=== PATIENT | male | born 1955 | race Caucasian/White ===

== ENCOUNTER 2018-01-28 10:22 | Observation (INO) | payer MEDICAID ==
[2018-01-28 10:30] VITALS: BMI 27.1
[2018-01-28] MEDS ORDERED: Aspirin 325 mg EC Tablets PO STA (10:39)
[2018-01-28] MEDS ORDERED: Sodium Chloride 0.9% 1,000 ML IV STA (10:41)
[2018-01-28 10:52] LABS: VENOUS BLOOD GAS PO2 38 mm/Hg (30-55); VENOUS BLOOD PH 7.33 (7.32-7.43)
--- NOTE | 2018-01-28 10:56 | ED PDOC ---
Arrival/HPI - General Chief Complaint: Chest Pain Time Seen by Provider: 01/28/18 10:39 Historian: Patient - History of Present Illness Narrative History of Present Illness (Text): 01/28/18 10:50 62 year old male, with past medical history of COPD/asthma and non-insulin dependent diabetes, presents to the Emergency department complaining of episodic chest pain accompanied with shortness of breath and dizziness since yesterday. Patient informs feeling vertiginously dizzy last night which worsened after taking a shower. Patient informs taking his medications and going to bed after uneventfully. However, symptoms persisted in the morning with worsening dizziness, chest pain described as pressure-like radiating downwards to epigastric region, nausea and diaphoresis. Patient called EMS immediately and presented to the ER for medical evaluation. Patient denies any fever, chills, vomiting, diarrhea, abdominal pain, infective foci or any other complaints. Time/Duration: Prior to Arrival, Other (last night) Symptom Onset: Gradual Symptom Course: Worsening Quality: Pressure Activities at Onset: Light Context: Home Past Medical History - Provider Review Nursing Documentation Reviewed: Yes - Pulmonary Hx Bronchitis: Yes Hx Chronic Obstructive Pulmonary Disease (COPD): Yes - Endocrine/Metabolic Hx Diabetes Mellitus Type 2: Yes - Psychiatric Hx Depression: No Hx Substance Use: No - Anesthesia Hx Anesthesia: No - Suicidal Assessment Feels Threatened In Home Enviroment: No Family/Social History - Physician Review Nursing Documentation Reviewed: Yes Family/Social History: No Known Family HX Smoking Status: Light Smoker < 10 Cigarettes Daily Hx Alcohol Use: Yes Hx Substance Use: No Hx Substance Use Treatment: No Allergies/Home Meds Allergies/Adverse Reactions: Allergies No Known Allergies Allergy (Verified 06/13/17 21:55) Home Medications: Home Meds Medication Instructions Recorded Confirmed metFORMIN [glucOPHAGE] 500 mg PO DAILY 06/13/17 01/28/18 Albuterol HFA [Ventolin HFA 90 2 puff IH Q6H PRN 01/28/18 01/28/18 mcg/actuation (8 g)] Aspirin [Adult Aspirin] 81 mg PO DAILY 01/28/18 01/28/18 Enalapril Maleate [Vasotec] 2.5 mg PO DAILY 01/28/18 01/28/18 Fluticasone/Salmeterol 500/50 1 puff IH BID 01/28/18 01/28/18 [Advair Diskus 500/50] Tiotropium [Spiriva] 1 cap IH DAILY 01/28/18 01/28/18 Review of Systems - Physician Review All systems were reviewed & negative as marked: Yes - Review of Systems Constitutional: Normal. absent: Fevers Eyes: Normal ENT: Normal Respiratory: SOB Cardiovascular: Chest Pain Gastrointestinal: Nausea. absent: Abdominal Pain, Diarrhea, Vomiting Genitourinary Male: Normal Musculoskeletal: Normal Skin: Normal Neurological: Dizziness Endocrine: Diaphoresis Hemo/Lymphatic: Normal Psychiatric: Normal Physical Exam Vital Signs Reviewed: Yes Vital Signs Temp Pulse Resp BP Pulse Ox 01/28/18 14:11 75 18 118/61 99 01/28/18 14:00 77 18 121/71 01/28/18 12:57 77 18 121/71 96 01/28/18 10:59 75 20 129/79 95 01/28/18 10:38 97.5 F L 91 H 19 130/99 H 96 Temperature: Afebrile Blood Pressure: Hypertensive Pulse: Regular Respiratory Rate: Normal Appearance: Positive for: Uncomfortable (clutching emesis bucket; diaphoretic) Pain Distress: Mild Mental Status: Positive for: Alert and Oriented X 3 - Systems Exam Head: Present: Atraumatic, Normocephalic Pupils: Present: PERRL Extroacular Muscles: Present: EOMI Conjunctiva: Present: Normal Respiratory/Chest: Present: Clear to Auscultation. No: Good Air Exchange ( Decreased I/E ratio), Respiratory Distress, Accessory Muscle Use, Wheezes Cardiovascular: Present: Regular Rate and Rhythm, Normal S1, S2, Other ( complaining of intermittent chest pain). No: Murmurs Abdomen: No: Tenderness, Distention, Peritoneal Signs Upper Extremity: Present: Normal Inspection. No: Cyanosis, Edema Lower Extremity: Present: Normal Inspection. No: Edema Neurological: Present: GCS=15, CN II-XII Intact, Speech Normal Skin: Present: Warm, Dry, Normal Color. No: Rashes Psychiatric: Present: Alert, Oriented x 3, Normal Insight, Normal Concentration Medical Decision Making ED Course and Treatment: 01/28/18 11:02 Impression: 62 year old male presents to the Emergency department for chest pain , shortness of breath and dizziness. Plan: -- VBG -- CT of Head -- EKG -- Labs -- Chest X-ray -- Meclizine -- Aspirin -- IV Fluids -- Zofran -- Urine Culture -- Urinalysis -- Reassess and disposition Prior Visits: Notes and results from previous visits were reviewed. On 06/13/17 patient presented to the Emergency department for chest pain and was discharged home after treatment for asthmatic bronchitis. Progress Notes: 01/28/18 11:00 EKG: Ordered, reviewed, and independently interpreted the EKG. Rate : 81 BPM Rhythm : NSR Interpretation : Qtc 462ms. No arrhythmogenic interval. No ST-segment elevations or depressions, no T-wave inversions, normal intervals. 01/28/18 12:21 CT of head reviewed by radiologist, shows: FINDINGS: HEMORRHAGE: No intracranial hemorrhage. BRAIN: No mass effect or edema. No atrophy or chronic microvascular ischemic changes. VENTRICLES: Unremarkable. No hydrocephalus. CALVARIUM: Unremarkable. PARANASAL SINUSES: Unremarkable as visualized. No significant inflammatory changes. MASTOID AIR CELLS: Unremarkable as visualized. No inflammatory changes. OTHER FINDINGS: None. IMPRESSION: No acute intracranial abnormalities. No significant findings to account for the clinical presentation. No significant interval change compared to the prior examination(s). - Lab Interpretations Lab Results: 01/28/18 10:35 01/28/18 10:35 Lab Results 01/28/18 12:10: pO2 69 H, VBG pH 7.41, VBG pCO2 39.0 L, VBG HCO3 24.7, VBG Total CO2 25.9, VBG O2 Sat (Calc) 96.1 H, VBG Base Excess 0.1, VBG Potassium 3.8 , Sodium 134.0, Chloride 103.0, Glucose 111 H, Lactate 1.8, FiO2 21.0, Venous Blood Potassium 3.8 01/28/18 11:25: Urine Color Yellow, Urine Appearance Clear, Urine pH 6.0, Ur Specific [place] 1.025, Urine Protein Trace H, Urine Glucose (UA) Negative, Urine Ketones Negative, Urine Blood Negative, Urine Nitrate Negative, Urine Bilirubin Negative, Urine Urobilinogen 0.2, Ur Leukocyte Esterase Negative, Urine RBC 0 - 2, Urine WBC 0 - 2, Ur Epithelial Cells None, Urine Bacteria Few 01/28/18 10:47: POC Glucose (mg/dL) 96 01/28/18 10:35: Sodium 143, Chloride 102, Potassium 4.3, Carbon Dioxide 27, Anion Gap 19, BUN 13, Creatinine 0.8, Est GFR ( Amer) > 60, Est GFR (Non- Af Amer) > 60, Random Glucose 99, Calcium 9.5, Magnesium 2.2, Total Bilirubin 0.4, AST 33, ALT 29, Alkaline Phosphatase 39, Lactate Dehydrogenase 411, Total Creatine Kinase 120, Troponin I < 0.01, NT-Pro-B Natriuret Pep 58.2, Total Protein 7.8, Albumin 4.6, Globulin 3.3, Albumin/Globulin Ratio 1.4 01/28/18 10:35: pO2 38, VBG pH 7.33, VBG pCO2 53.0, VBG HCO3 27.9, VBG Total CO2 29.5 H, VBG O2 Sat (Calc) 76.4 H, VBG Base Excess 1.0, VBG Potassium 4.2, Sodium 136.0, Chloride 101.0, Glucose 101, Lactate 2.8 H, FiO2 21.0, Venous Blood Potassium 4.2 01/28/18 10:35: PT 11.7, INR 1.02, APTT 31.0 01/28/18 10:35: WBC 9.0, RBC 6.28 H, Hgb 17.3, Hct 50.3, MCV 80.1, MCH 27.5, MCHC 34.4, RDW 15.2 H, Plt Count 266, MPV 9.7, Gran % 52.2, Lymph % (Auto) 38.7 H, [place] % (Auto) 8.1 H, Eos % (Auto) 0.8 L, Baso % (Auto) 0.2, Gran # 4.67, Lymph # (Auto) 3.5 H, [place] # (Auto) 0.7 H, Eos # (Auto) 0.1, Baso # (Auto) 0.02 - RAD Interpretation Radiology Orders: 01/28/18 10:40 CHEST PORTABLE [RAD] Stat 01/28/18 10:42 HEAD W/O CONTRAST [CT] Stat Lamp Developer: Radiologist - EKG Interpretation Interpreted by ED Physician: Yes Type: 12 lead EKG - Medication Orders Current Medication Orders: Acetaminophen (Tylenol 325mg Tab) 650 mg PO Q6H PRN PRN Reason: Fever >100.4 F Albuterol/Ipratropium (Duoneb 3 Mg/0.5 Mg (3 Ml) Ud) 3 ml IH [id number] PRN PRN Reason: Shortness of Breath Arformoterol Tartrate (Brovana) 15 mcg IH [id number] RONNIE Aspirin (Ecotrin) 81 mg PO DAILY RONN[facility] Budesonide (Pulmicort Respules) 1 mg IH [id number] RONNIE Heparin Sodium (Porcine) (Heparin) 5,000 units SC Q8 [facility] PRN Reason: Protocol Insulin Human Lispro (Humalog Low) 0 units SC ACHS [facility]ONNIE PRN Reason: Protocol Lisinopril (Zestril) 2.5 mg PO DAILY RONNIE Ondansetron HCl (Zofran Inj) 4 mg IVP Q6H PRN PRN Reason: Nausea/Vomiting Pantoprazole Sodium (Protonix Ec Tab) 40 mg PO 0600 RONNIE Tiotropium [place] (Spiriva) 1,000 mcg IH DAILY RONNIE Discontinued Medications Aspirin (Ecotrin) 325 mg PO STAT STA Stop: 01/28/18 10:40 Last Admin: 01/28/18 10:49 Dose: 325 mg Sodium Chloride (Sodium Chloride 0.9%) 1,000 mls @ 999 mls/hr IV .Q1H1M STA Stop: 01/28/18 11:41 Last Admin: 01/28/18 10:49 Dose: 999 mls/hr eMAR Start Stop Document 01/28/18 10:49 GMD (Rec: 01/28/18 10:49 GMD [id number]) Intravenous Solution Start Date 01/28/18 Start Time 10:49 End Date 01/28/18 End time 11:50 Total Infusion Time 61 Meclizine HCl (Antivert) 50 mg PO STAT STA Stop: 01/28/18 10:42 Last Admin: 01/28/18 10:49 Dose: 50 mg Ondansetron HCl (Zofran Inj) 4 mg IVP STAT STA Stop: 01/28/18 10:42 Last Admin: 01/28/18 10:49 Dose: 4 mg IVP Administration Document 01/28/18 10:49 GMD (Rec: 01/28/18 10:49 GMD [id number]) Charges for Administration # of IVP Administrations 1 Fluticasone/Salmeterol (Advair Diskus 500/50) 1 puff IH BID RONNIE - Scribe Statement The provider has reviewed the documentation as recorded by the Scribe Shayy Whiteside. All medical record entries made by the Scribe were at my direction and personally dictated by me. I have reviewed the chart and agree that the record accurately reflects my personal performance of the history, physical exam, medical decision making, and the department course for this patient. I have also personally directed, reviewed, and agree with the discharge instructions and disposition. Disposition/Present on Arrival - Present on Arrival Any Indicators Present on Arrival: No History of DVT/PE: No History of Uncontrolled Diabetes: Yes Urinary Catheter: No History of Decub. Ulcer: No History Surgical Site Infection Following: None - Disposition Have Diagnosis and Disposition been Completed?: Yes Diagnosis: Chest pain, Vertigo Disposition: HOSPITALIZED Disposition Time: 11:45 Patient Plan: Admission, Telemetry Condition: FAIR
[2018-01-28 11:01] LABS: ALB/GLOB RATIO 1.4 (1.1-1.8); ALBUMIN 4.6 g/dL (3.0-4.8); ALT/SGPT 29 U/L (7-56); AST/SGOT 33 U/L (17-59); BLOOD UREA NITROGEN 13 mg/dL (7-21); CALCIUM 9.5 mg/dL (8.4-10.5); GFR AFRICAN-AMERICAN > 60; GFR NON-AFRICAN AMERICAN > 60
[2018-01-28 11:08] LABS: BASO # 0.02 K/mm3 (0.0-2.0); BASO % 0.2 % (0.0-3.0); EOS # 0.1 (0.0-0.7); EOS % 0.8 % (1.5-5.0); GRAN # 4.67 (1.4-6.5); GRAN % 52.2 % (50.0-68.0); HEMOGLOBIN 17.3 g/dL (14.0-18.0); LYMPH # 3.5 (1.2-3.4); LYMPH % 38.7 % (22.0-35.0); MEAN CELL VOLUME 80.1 fl (80.0-105.0); MEAN CORPUSCULAR HEMOGLOBIN 27.5 pg (25.0-35.0); MEAN CORPUSCULAR HGB CONC 34.4 g/dl (31.0-37.0); MEAN PLATELET VOLUME 9.7 fl (7.0-11.0); MONO # 0.7 (0.1-0.6); MONO % 8.1 % (1.0-6.0); RBC 6.28 10^6/uL (3.5-6.1); RED CELL DISTRIBUTION WIDTH 15.2 % (11.5-14.5)
[2018-01-28 11:13] LABS: B-TYPE NATRIURETIC PEPTIDE 58.2 pg/mL (0-450); TROPONIN I < 0.01 ng/mL
[2018-01-28 11:24] LABS: INR 1.02 (0.93-1.08); PROTHROMBIN TIME 11.7 SECONDS (9.4-12.5)
--- NOTE | 2018-01-28 11:37 | CT ---
PROCEDURE: CT HEAD WITHOUT CONTRAST. HISTORY: dizziness r/o central cause of vertigo COMPARISON: 07/09/2012 TECHNIQUE: Axial computed tomography images were obtained through the head/brain without intravenous contrast. Coronal and sagittal reconstructed images. Ostial worked out but I CT tastes correct Radiation dose: Total exam DLP = 855.29 mGy-cm. This CT exam was performed using one or more of the following dose reduction techniques: Automated exposure control, adjustment of the mA and/or kV according to patient size, and/or use of iterative reconstruction technique. FINDINGS: HEMORRHAGE: No intracranial hemorrhage. BRAIN: No mass effect or edema. No atrophy or chronic microvascular ischemic changes. VENTRICLES: Unremarkable. No hydrocephalus. CALVARIUM: Unremarkable. PARANASAL SINUSES: Unremarkable as visualized. No significant inflammatory changes. MASTOID AIR CELLS: Unremarkable as visualized. No inflammatory changes. OTHER FINDINGS: None. IMPRESSION: No acute intracranial abnormalities. No significant findings to account for the clinical presentation. No significant interval change compared to the prior examination(s).
[2018-01-28 11:42] LABS: URINE BILIRUBIN NEGATIVE (NEGATIVE); URINE BLOOD NEGATIVE (NEGATIVE); URINE GLUCOSE (UA) NEGATIVE (NEGATIVE); URINE LEUKOCYTE ESTERASE NEGATIVE Leu/uL (NEGATIVE); URINE PROTEIN TRACE mg/dL (<30 mg/dL); URINE UROBILINOGEN 0.2 E.U./dL (<1 E.U./dL)
[2018-01-28 11:48] LABS: URINE APPEARANCE CLEAR (CLEAR); URINE COLOR YELLOW (YELLOW)
[2018-01-28 12:12] LABS: URINE BACTERIA FEW (NEG); URINE RBC 0 - 2 /hpf (0-2); URINE WBC 0 - 2 /hpf (0-6)
--- NOTE | 2018-01-28 12:35 | RAD ---
HISTORY: routine med exam COMPARISON: 06/29/2012. FINDINGS: LUNGS: No active pulmonary disease. PLEURA: No significant pleural effusion identified, no pneumothorax apparent. CARDIOVASCULAR: No radiographic findings to suggest acute or significant cardiovascular disease. OSSEOUS STRUCTURES: No significant abnormalities. VISUALIZED UPPER ABDOMEN: Normal. OTHER FINDINGS: None. IMPRESSION: No active disease. No significant interval change compared to the prior examination(s).
--- NOTE | 2018-01-28 13:03 | CARD ---
APPROVED REPORT EKG Measurement Heart [id number] <Conclusion> Normal sinus rhythm Possible Left atrial enlargement Left axis deviation Abnormal ECG
[2018-01-28 14:18] LABS: VENOUS BLOOD GAS BASE EXCESS 0.1 mmol/L (0.0-2.0); VENOUS BLOOD GAS PO2 69 mm/Hg (30-55); VENOUS BLOOD PH 7.41 (7.32-7.43)
--- NOTE | 2018-01-28 15:06 | CP.PCM.HP ---
<Shilpa Reina - Last Filed: 01/28/18 15:31> History of Present Illness - History of Present Illness History of Present Illness: PGY-[address] George CC: Dizziness with chest discomfort Mr. Juanito Rocha, 62M, former smoker (quit 1 year ago), with PMHx of non-IDDM, COPD, c/o chest pain with dizziness x 1 day. Last night, pt felt dizziness with room spinning sensation as he changed his postition and turn in his bed. It was associated with diaphoresis, generalized weakness, and chest discomfort. He felt dizzy throughout the day, worsen when he took a shower. The dizziness is room spinning, comes and goes, but associated with N/V, diaphoresis, generalized weakness and chest discomfort. He had chest pressure that felt "funny". No radiation to arm, jaw, back. Patient called EMS immediately and presented to the ER for medical evaluation. He vomited once in the ED, non- bloody, non billous. He never had heart doctor or stress test/echocardiogram. He had colonoscopy 5 years ago, endorsed to be normal. He forgot name of GI doctor. He had severe vertigo 5 years ago. Controlled by med and off the med since but forgot the name of the med. EKG: NSR 81. Qtc 462ms. No arrhythmogenic interval. No ST-segment elevations or depressions, no T-wave inversions, normal intervals. CT head: no acute intracranial abnormality Pt took ASA 325, meclizine and zofran in ED ROS - Denies any fever, chills, MARTINEZ, SOB, diarrhea, abdominal pain, recent infection. No strenuous activity. Last exercise last monday. No new food/ stale food. PMH DM, non-iddm COPD, hospitalized 2017, never intubated Former smoker, quit 2017. used to smoke 1/2ppd x 30 years PSH None FH Father of [place] at age 89 SH Live with Denies etoh Denies drug All NKDA Med: Metformin 500 daily spiriva, Advair (ICS+Laba) Enalapril PMD: Dr. Perez Wassef Present on Admission - Present on Admission Any Indicators Present on Admission: No Past Patient History - Past Social History Smoking Status: Former Smoker - PULMONARY Hx Bronchitis: Yes Hx Chronic Obstructive Pulmonary Disease (COPD): Yes - ENDOCRINE/METABOLIC Hx Diabetes Mellitus Type 2: Yes - MUSCULOSKELETAL/RHEUMATOLOGICAL Hx Falls: No - PSYCHIATRIC Hx Depression: No Hx Substance Use: No - SURGICAL HISTORY Hx Surgeries: No - ANESTHESIA Hx Anesthesia: No Meds Allergies/Adverse Reactions: Allergies Allergy/AdvReac Type Severity Reaction Status Date / Time No Known Allergies Allergy Verified 06/13/17 21:55 Physical Exam - Constitutional Appears: No Acute Distress - Head Exam Head Exam: ATRAUMATIC, NORMAL INSPECTION, NORMOCEPHALIC - Eye Exam Eye Exam: EOMI, Normal appearance, PERRL. absent: Scleral icterus Pupil Exam: NORMAL ACCOMODATION, PERRL - ENT Exam ENT Exam: Mucous Membranes Moist - Neck Exam Neck exam: Negative for: Lymphadenopathy, Tenderness Additional comments: No JVD, supple - Respiratory Exam Respiratory Exam: Clear to Auscultation Bilateral. absent: Rales, Rhonchi, Wheezes - Cardiovascular Exam Cardiovascular Exam: REGULAR RHYTHM, +S1, +S2 - GI/Abdominal Exam GI & Abdominal Exam: Soft. absent: Distended, Guarding, Rigid, Tenderness - Extremities Exam Extremities exam: Positive for: pedal pulses present. Negative for: calf tenderness, pedal edema - Neurological Exam Neurological exam: Alert, CN II-XII Intact, Oriented x3, Reflexes Normal Additional comments: AAOx3 Motor 5/5 and sensation intact all extremities rapid alternating movement intact [id number] intact (+) april-hallpike maneuver: horizontal nystagmus - Psychiatric Exam Psychiatric exam: Normal Affect, Normal Mood - Skin Skin Exam: Dry, Normal Color Results - Vital Signs Recent Vital Signs: Last Vital Signs Temp 97.5 F L 01/28/18 10:38 Pulse 75 01/28/18 14:11 Resp 18 01/28/18 14:11 BP 118/61 01/28/18 14:36 Pulse Ox 97 01/28/18 14:36 - Labs Result Diagrams: 01/28/18 10:35 01/28/18 10:35 Assessment & Plan - Assessment and Plan (Free Text) Plan: Mr. Juanito Rocha, 62M, former smoker (quit 1 year ago), with PMHx of HTN, non-IDDM , COPD, c/o chest pain and dizziness x 1 day. Dizziness was associated with chest discomfort, N/V, diaphoresis, and generalized weakness. EKG: NSR 81. Qtc 462ms. No arrhythmogenic interval. No ST-segment elevations or depressions, no T -wave inversions, normal intervals. CT head: no acute intracranial abnormality. He took meclizine in the ED and felt better but room-spinning sensation returns after the [place]-hallpike manuever with positive findings of horizontal nystagmus. Dizziness, likely peripheral Vertigo due to BPPV R/O cardiac or neurological causes - Telemetry - Carotid u/s - echocardiogram - Cardiology, neuro consult - Orthostativ VS - physical therapy - Zofran PRN Chest pain R/O ACS - Trend cardiac enzymes - Consult cardiology Elevated lactate at 2.8 - No sign of acidosis. Questionable lab error - Doubt metformin induced lactic acidosis Diabetes - A1C, TSH, lipid - ISSS-low, Accucheck COPD - Continue home spiriva, advair; duoneb prn HTN - Continue home ASA, ACEi Prophylaxis - heparin SC q8 - protonix Discharge planning - Home after clear from PT, neuro, cardio s/r/d/w Dr. George <Indio George - Last Filed: 01/28/18 18:00> Results - Vital Signs Recent Vital Signs: Last Vital Signs Temp 97.5 F L 01/28/18 10:38 Pulse 75 01/28/18 14:11 Resp 18 01/28/18 14:11 BP 118/61 01/28/18 14:36 Pulse Ox 97 01/28/18 14:36 - Labs Result Diagrams: 01/28/18 10:35 01/28/18 10:35 Labs: Laboratory Results - last 24 hr 01/28/18 01/28/18 14:00 14:00 Triglycerides 145 Cholesterol 188 LDL Cholesterol Direct 110 HDL Cholesterol 47 TSH 3rd Generation 0.32 L Attending/Attestation - Attestation I have personally seen and examined this patient.: Yes I have fully participated in the care of the patient.: Yes I have reviewed all pertinent clinical information: Yes Notes (Text): 01/28/18 17:56 attending note; Patient seen and examined With resident in ER. patient is a 62-year-old male with a past medical history of diabetes, vertigo is admitted with severe vertigo associated with nausea and vomiting. Also complained of chest pain on and off. currently pain free. CT head showed no acute infarct. Possibly peripheral vertigo. Continue meclizine when necessary. Neurology evaluation requested. orthostatic blood pressure ordered. Chest pain with palpitations; patient with a history of diabetes, history of smoking, obesity. Patient will be admitted to telemetry. Cardiac enzymes 3 ordered. echocardiogram requested. Patient did not have any previous cardiac workup. Diabetes; continue regular insulin sliding scale. Hemoglobin A1c ordered. History of COPD; currently stable respiratory status. Patient quit smoking 1 year ago. monitor patient in telemetry. Upon discharge the patient will follow up with PMD Dr. Melgar. 01/28/18 17:59
[2018-01-28] MEDS ORDERED: Albuterol-Ipratrop 3 mg / 0.5 (3 ml) UD IH PRN (15:29)
[2018-01-28 16:45] LABS: HDL CHOLESTEROL 47 mg/dL (29-60)
[2018-01-28 16:56] LABS: LDL CHOLESTEROL 110 mg/dL (0-129)
[2018-01-28] MEDS ORDERED: Fluticasone-Salmeterol 500-50mcg Diskus IH SCH (18:00)
[2018-01-28] MEDS: Insulin Lispro (humaLOG) LOW Coverage SC SCH ×2 (18:01→21:51)
[2018-01-28 19:30] LABS: TROPONIN I < 0.01 ng/mL
[2018-01-28] MEDS ORDERED: Arformoterol 15 mcg/2 ml Inh Sol IH SCH (20:00)
[2018-01-28] MEDS ORDERED: Budesonide 0.5 mg/2 ml Inhal Susp UD IH SCH (20:00)
[2018-01-29 00:02] VITALS: RESP 20
--- NOTE | 2018-01-29 01:40 | CON ---
DATE: 01/28/2018 CARDIOLOGY CONSULTATION HISTORY OF PRESENT ILLNESS: The patient is a 62-year-old male who presented with transient dizziness. His symptoms are consistent with vertigo in which he says the room was spinning around him. Currently, his symptoms are now much better while resting in bed. PAST MEDICAL HISTORY: Includes a history of diabetes mellitus, questionable hypertension and no previous cardiac history. He is followed by is primary care doctor who according to the patient, has never tested him for cardiac disease. SOCIAL HISTORY: He is a heavy smoker for many years and has stopped 6 to 7 months ago, and this is an attempt to become healthier. He denies angina and denies shortness of breath. REVIEW OF SYSTEMS: 14-point review of systems is reviewed in detail. No previous myocardial infarction. Negative dyspnea. Negative orthopnea. Negative pedal edema, negative PND. PHYSICAL EXAMINATION: VITAL SIGNS: Stable. NECK: Negative JVD. LUNGS: Without rales. HEART: Reveals S1, S2. EXTREMITIES: Without edema. EKG shows left anterior hemiblock. Troponins are negative x2. IMPRESSION: 1. Dizziness, likely vertigo. 2. No chest pain or angina noted. 3. Chronic obstructive pulmonary disease. 4. Diabetes mellitus. 5. Occasional dyspnea. Given these findings, an echocardiogram has been ordered. It is good that the patient has stopped smoking. However, I have discussed with the patient through his daughter than it would be ortiz if he underwent a stress test before he start an exercise program given his history of heavy smoking for many years. Tom Giron MD
[2018-01-29 02:34] LABS: TROPONIN I < 0.01 ng/mL
[2018-01-29 05:27] VITALS: O2SAT 96
[2018-01-29] MEDS ORDERED: Pantoprazole 40 mg EC Tab PO SCH (06:00)
[2018-01-29] MEDS: Insulin Lispro (humaLOG) LOW Coverage SC SCH ×3 (07:23→16:38)
[2018-01-29 08:02] LABS: BASO # 0.02 K/mm3 (0.0-2.0); BASO % 0.2 % (0.0-3.0); EOS # 0.1 (0.0-0.7); EOS % 1.1 % (1.5-5.0); GRAN # 4.67 (1.4-6.5); GRAN % 56.6 % (50.0-68.0); HEMOGLOBIN 16.6 g/dL (14.0-18.0); LYMPH # 2.9 (1.2-3.4); MEAN CELL VOLUME 79.9 fl (80.0-105.0); MEAN CORPUSCULAR HEMOGLOBIN 27.4 pg (25.0-35.0); MEAN CORPUSCULAR HGB CONC 34.3 g/dl (31.0-37.0); MEAN PLATELET VOLUME 9.6 fl (7.0-11.0); MONO # 0.6 (0.1-0.6); MONO % 7.1 % (1.0-6.0); RBC 6.06 10^6/uL (3.5-6.1); RED CELL DISTRIBUTION WIDTH 15.2 % (11.5-14.5); WHITE BLOOD COUNT 8.3 10^3/ul (4.5-11.0)
[2018-01-29 08:10] LABS: ALB/GLOB RATIO 1.4 (1.1-1.8); ALBUMIN 4.1 g/dL (3.0-4.8); ALT/SGPT 26 U/L (7-56); AST/SGOT 30 U/L (17-59); BLOOD UREA NITROGEN 12 mg/dL (7-21); CALCIUM 9.2 mg/dL (8.4-10.5); GFR AFRICAN-AMERICAN > 60; GFR NON-AFRICAN AMERICAN > 60
--- NOTE | 2018-01-29 08:16 | CP.PCM.PN ---
Subjective - Date & Time of Evaluation Date of Evaluation: 01/29/18 Time of Evaluation: 06:00 - Subjective Subjective: Patient seen and evaluated bedside. No acute issues overnight. Patient says his chest pain has improved, as well as his dizziness. Patient denies chest pain, shortness of breath, dizziness, fever, chills or any other complaints at this time. Objective - Vital Signs/Intake and Output Vital Signs (last 24 hours): Temp Pulse Resp BP Pulse Ox 97.9 F 68 20 107/66 96 01/29/18 05:26 01/29/18 05:26 01/29/18 05:26 01/29/18 05:26 01/29/18 05:26 Intake and Output: 01/29/18 01/29/18 06:59 18:59 Intake Total 600 Balance 600 - Medications Medications: Current Medications Acetaminophen (Tylenol 325mg Tab) 650 mg PO Q6H PRN PRN Reason: Fever >100.4 F Albuterol/Ipratropium (Duoneb 3 Mg/0.5 Mg (3 Ml) Ud) 3 ml IH [id number] PRN PRN Reason: Shortness of Breath Arformoterol Tartrate (Brovana) 15 mcg IH [id number] [facility] Last Admin: 01/28/18 20:00 Dose: 15 mcg Aspirin (Ecotrin) 81 mg PO DAILY [facility] Budesonide (Pulmicort Respules) 1 mg IH [id number] [facility] Last Admin: 01/28/18 20:00 Dose: 1 mg Heparin Sodium (Porcine) (Heparin) 5,000 units SC Q8 [facility] PRN Reason: Protocol Last Admin: 01/29/18 05:15 Dose: 5,000 units Insulin Human Lispro (Humalog Low) 0 units SC ACHS [facility] PRN Reason: Protocol Last Admin: 01/29/18 07:23 Dose: Not Given Lisinopril (Zestril) 2.5 mg PO DAILY [facility] Ondansetron HCl (Zofran Inj) 4 mg IVP Q6H PRN PRN Reason: Nausea/Vomiting Pantoprazole Sodium (Protonix Ec Tab) 40 mg PO 0600 [facility] Last Admin: 01/29/18 05:14 Dose: 40 mg Tiotropium [place] (Spiriva) 18 mcg IH DAILY [facility] - Labs Labs: 01/29/18 07:30 01/29/18 07:30 PT 11.7 SECONDS (9.4-12.5) 01/28/18 10:35 INR 1.02 (0.93-1.08) 01/28/18 10:35 APTT 31.0 Seconds (25.1-36.5) 01/28/18 10:35 - Constitutional Appears: Non-toxic, No Acute Distress - Head Exam Head Exam: ATRAUMATIC, NORMAL INSPECTION, NORMOCEPHALIC - Eye Exam Eye Exam: EOMI, Normal appearance - ENT Exam ENT Exam: Mucous Membranes Moist - Respiratory Exam Respiratory Exam: Clear to Ausculation Bilateral, NORMAL BREATHING PATTERN - Cardiovascular Exam Cardiovascular Exam: REGULAR RHYTHM, +S1, +S2 - GI/Abdominal Exam GI & Abdominal Exam: Distended, Soft - Extremities Exam Extremities Exam: absent: Pedal Edema - Neurological Exam Neurological Exam: Alert, Awake, Oriented x3
--- NOTE | 2018-01-29 08:26 | CP.PCM.CON ---
History of Present Illness - History of Present Illness History of Present Illness: Neurology Consult note for Dr. Hayden 62yo male PMHx non-IDDM, COPD, and tobacco abuse (quit 1 year ago) presented to [facility] on 01/28 with complaints of chest pain and dizziness for 1 day. Patient reports he started to feel dizzy when he was driving yesterday. When he went home and lay down, he continued to feel like the room was spinning every time he changed his position in bed. Patient had associated diaphoresis, generalized weakness, and some chest discomfort. He also complained of associated nausea but only vomite dwhen he came to the ED. He denied any LOC, fall, blurry vision, or recent trauma. He did complain of some ringing of the ears. Patient states he used to have dizzy spells 4 years ago and was prescribed a medication "for his ears" which he took for 1 week and then stopped as symptoms resolved. Since then he has not had any recurrent of these symptoms. Patient decided to come to the ED when his chest pressure did not improve. He has not been seen by a institutional nutrition consultant in the past and has no history of stress test/echo. On ROS he denied fever, chills, headache, palpitations, SOB , cough, abd pain, bowel/bladder complaints, pain/swelling in his legs b/l. Patient denied any recent travel/sick contacts/change in medications/food. PMHx: NIDDM, COPD (hospitalized 2017 never intubated), former tobacco abuse PSurgHx: None FamHx: Father of [place] at age 92 SocHx: former smoker, quit 2017. used to smoke 1/2ppd x 30 years; denies EtoH/ drug use; lives with Meds: pls see chart ALL: NKDA PMD: Dr. Melgar Review of Systems - Review of Systems All systems: reviewed and no additional remarkable complaints except Review of Systems: as per HPI Past Patient History - Past Social History Smoking Status: Light Smoker < 10 Cigarettes Daily - PULMONARY Hx Bronchitis: Yes Hx Chronic Obstructive Pulmonary Disease (COPD): Yes - ENDOCRINE/METABOLIC Hx Diabetes Mellitus Type 2: Yes - MUSCULOSKELETAL/RHEUMATOLOGICAL Hx Falls: No - PSYCHIATRIC Hx Depression: No Hx Substance Use: No - SURGICAL HISTORY Hx Surgeries: No - ANESTHESIA Hx Anesthesia: No Meds Allergies/Adverse Reactions: Allergies Allergy/AdvReac Type Severity Reaction Status Date / Time No Known Allergies Allergy Verified 06/13/17 21:55 - Medications Medications: Current Medications Acetaminophen (Tylenol 325mg Tab) 650 mg PO Q6H PRN PRN Reason: Fever >100.4 F Albuterol/Ipratropium (Duoneb 3 Mg/0.5 Mg (3 Ml) Ud) 3 ml IH [id number] PRN PRN Reason: Shortness of Breath Arformoterol Tartrate (Brovana) 15 mcg IH [id number] [facility] Last Admin: 01/28/18 20:00 Dose: 15 mcg Aspirin (Ecotrin) 81 mg PO DAILY [facility] Budesonide (Pulmicort Respules) 1 mg IH [id number] [facility] Last Admin: 01/28/18 20:00 Dose: 1 mg Heparin Sodium (Porcine) (Heparin) 5,000 units SC Q8 [facility] PRN Reason: Protocol Last Admin: 01/29/18 05:15 Dose: 5,000 units Insulin Human Lispro (Humalog Low) 0 units SC ACHS [facility] PRN Reason: Protocol Last Admin: 01/29/18 07:23 Dose: Not Given Lisinopril (Zestril) 2.5 mg PO DAILY [facility] Ondansetron HCl (Zofran Inj) 4 mg IVP Q6H PRN PRN Reason: Nausea/Vomiting Pantoprazole Sodium (Protonix Ec Tab) 40 mg PO 0600 [facility] Last Admin: 01/29/18 05:14 Dose: 40 mg Tiotropium [place] (Spiriva) 18 mcg IH DAILY [facility] Physical Exam - Constitutional Appears: Non-toxic, No Acute Distress - Head Exam Head Exam: ATRAUMATIC, NORMAL INSPECTION, NORMOCEPHALIC - Eye Exam Eye Exam: EOMI, Normal appearance. absent: Conjunctival injection, Scleral icterus - ENT Exam ENT Exam: Mucous Membranes Moist - Neck Exam Neck exam: Positive for: Full Rom - Respiratory Exam Respiratory Exam: NORMAL BREATHING PATTERN. absent: Accessory Muscle Use, Respiratory Distress - Cardiovascular Exam Cardiovascular Exam: +S1, +S2 - GI/Abdominal Exam GI & Abdominal Exam: Soft. absent: Tenderness - Rectal Exam Rectal Exam: Deferred - Neurological Exam Neurological exam: Alert, CN II-XII Intact, Oriented x3 Additional comments: (+) [place]ril-hallpike maneuver: horizontal nystagmus - Psychiatric Exam Psychiatric exam: Normal Affect, Normal Mood - Skin Skin Exam: Dry, Intact, Normal Color, Warm Results - Vital Signs Recent Vital Signs: Last Vital Signs Temp 97.9 F 01/29/18 05:26 Pulse 68 01/29/18 05:26 Resp 20 01/29/18 05:26 BP 107/66 01/29/18 05:26 Pulse Ox 96 01/29/18 05:26 - Labs Result Diagrams: 01/29/18 07:30 01/29/18 07:30 Labs: Laboratory Results - last 24 hr 01/28/18 01/28/18 01/28/18 14:00 14:00 19:03 WBC RBC Hgb Hct MCV MCH MCHC RDW Plt Count MPV Gran % Lymph % (Auto) Dixon % (Auto) Eos % (Auto) Baso % (Auto) Gran # Lymph # (Auto) [place] # (Auto) Eos # (Auto) Baso # (Auto) Sodium Potassium Chloride Carbon Dioxide Anion Gap BUN Creatinine Est GFR ( Amer) Est GFR (Non-Af Amer) Random Glucose Calcium Total Bilirubin AST ALT Alkaline Phosphatase Lactate Dehydrogenase 310 L Total Creatine Kinase 170 Troponin I < 0.01 Total Protein Albumin Globulin Albumin/Globulin Ratio Triglycerides 145 Cholesterol 188 LDL Cholesterol Direct 110 HDL Cholesterol 47 TSH 3rd Generation 0.32 L 01/29/18 01/29/18 01/29/18 02:05 07:30 07:30 WBC 8.3 RBC 6.06 Hgb 16.6 Hct 48.4 MCV 79.9 L MCH 27.4 MCHC 34.3 RDW 15.2 H Plt Count 263 MPV 9.6 Gran % 56.6 Lymph % (Auto) 35.0 Dixon % (Auto) 7.1 H Eos % (Auto) 1.1 L Baso % (Auto) 0.2 Gran # 4.67 Lymph # (Auto) 2.9 Dixon # (Auto) 0.6 Eos # (Auto) 0.1 Baso # (Auto) 0.02 Sodium 141 Potassium 4.1 Chloride 105 Carbon Dioxide 25 Anion Gap 16 BUN 12 Creatinine 0.8 Est GFR ( Amer) > 60 Est GFR (Non-Af Amer) > 60 Random Glucose 100 Calcium 9.2 Total Bilirubin 0.3 AST 30 ALT 26 Alkaline Phosphatase 41 Lactate Dehydrogenase 330 L Total Creatine Kinase 216 Troponin I < 0.01 Total Protein 7.1 Albumin 4.1 Globulin 3.0 Albumin/Globulin Ratio 1.4 Triglycerides Cholesterol LDL Cholesterol Direct HDL Cholesterol TSH 3rd Generation Assessment & Plan - Assessment and Plan (Free Text) Assessment: 62yo male PMHx HTN, NIDDM, COPD presented with chest pain and dizziness for 1 day Plan: -Head CT: unremarkable -Orthostatic vital signs: wnl -f/u Echo -f/u carotid u/s -Zofran prn -continue current management as per primary Will discuss with Dr. Catracho Granger PGY2
[2018-01-29 08:41] LABS: FREE T4 1.17 ng/dL (0.78-2.19)
--- NOTE | 2018-01-29 09:53 | PN ---
DATE: 01/29/2018 SUBJECTIVE: The patient is asymptomatic. OBJECTIVE: VITAL SIGNS: Blood pressure is 107/66, heart rates in the 60s. No arrhythmias noted. NECK: Negative JVD. LUNGS: Without rales. HEART: S1, S2. EXTREMITIES: Without edema. LABORATORY DATA: Unremarkable. IMPRESSION: 1. Transient dizziness, which is now resolved. 2. Chronic obstructive pulmonary disease. 3. Diabetes mellitus. Given these findings, we will ambulate the patient. If the patient is stable, the patient can be discharged. We will arrange for an outpatient stress test prior to the patient's intent on starting an exercise program. Tom Giron MD
[2018-01-29] MEDS ORDERED: Tiotropium 18 mcg Cap For Inhalation IH SCH ×2 (10:00)
--- NOTE | 2018-01-29 11:27 | CARD ---
APPROVED REPORT EKG Measurement Heart [id number] <Conclusion> Normal sinus rhythm Normal ECG
[2018-01-29 15:13] VITALS: BP 122/79; PULSE 72; TEMP 98.1
--- NOTE | 2018-01-29 16:58 | US ---
PROCEDURE: Bilateral carotid artery duplex ultrasound HISTORY: Carotid stenosis PHYSICIAN(S): Tom Roth MD. TECHNIQUE: Duplex sonography and color-flow Doppler were used to evaluate the carotid bifurcations and limited segments of the vertebral arteries bilaterally. FINDINGS: There is mild smooth hypoechoic plaque noted at the carotid bifurcations bilaterally. The peak systolic velocity in the proximal right internal carotid artery is 59 cm/sec. This corresponds to a 20 to 39% proximal right ICA stenosis. Normal systolic velocities are noted in the proximal right external carotid artery. There is antegrade flow in the atretic right vertebral artery. The peak systolic velocity in the proximal left internal carotid artery is 58 cm/sec. This corresponds to a 20 to 39% proximal left ICA stenosis. Normal systolic velocities are noted in the proximal left external carotid artery. There is antegrade flow in the left vertebral artery. IMPRESSION: 1. Bilateral 20-39% proximal ICA stenoses. 2. Antegrade flow in both vertebral arteries.
--- NOTE | 2018-01-29 18:35 | CP.PCM.DIS ---
<Shilpa Reina - Last Filed: 01/29/18 18:30> Provider - Provider Date of Admission: 01/28/18 12:45 Attending physician: Obed Negrete MD Primary care physician: Ana Melgar MD Consults: Dr Giron, cardiology Dr Hayden, neurologist Time Spent in preparation of Discharge (in minutes): 20 Diagnosis - Discharge Diagnosis (1) Dizziness Status: Acute (2) Chest pain Status: Acute (3) Vertigo Status: Acute Hospital Course - Lab Results Lab Results: Most Recent Lab Values WBC 8.3 10^3/ul (4.5-11.0) 01/29/18 07:30 RBC 6.06 10^6/uL (3.5-6.1) 01/29/18 07:30 Hgb 16.6 g/dL (14.0-18.0) 01/29/18 07:30 Hct 48.4 % (42.0-52.0) 01/29/18 07:30 MCV 79.9 fl (80.0-105.0) L 01/29/18 07:30 MCH 27.4 pg (25.0-35.0) 01/29/18 07:30 MCHC 34.3 g/dl (31.0-37.0) 01/29/18 07:30 RDW 15.2 % (11.5-14.5) H 01/29/18 07:30 Plt Count 263 10^3/uL (120.0-450.0) 01/29/18 07:30 MPV 9.6 fl (7.0-11.0) 01/29/18 07:30 Gran % 56.6 % (50.0-68.0) 01/29/18 07:30 Lymph % (Auto) 35.0 % (22.0-35.0) 01/29/18 07:30 Pierce % (Auto) 7.1 % (1.0-6.0) H 01/29/18 07:30 Eos % (Auto) 1.1 % (1.5-5.0) L 01/29/18 07:30 Baso % (Auto) 0.2 % (0.0-3.0) 01/29/18 07:30 Gran # 4.67 (1.4-6.5) 01/29/18 07:30 Lymph # (Auto) 2.9 (1.2-3.4) 01/29/18 07:30 Pierce # (Auto) 0.6 (0.1-0.6) 01/29/18 07:30 Eos # (Auto) 0.1 (0.0-0.7) 01/29/18 07:30 Baso # (Auto) 0.02 K/mm3 (0.0-2.0) 01/29/18 07:30 PT 11.7 SECONDS (9.4-12.5) 01/28/18 10:35 INR 1.02 (0.93-1.08) 01/28/18 10:35 APTT 31.0 Seconds (25.1-36.5) 01/28/18 10:35 pO2 69 mm/Hg (30-55) H 01/28/18 12:10 VBG pH 7.41 (7.32-7.43) 01/28/18 12:10 VBG pCO2 39.0 (40-60) L 01/28/18 12:10 VBG HCO3 24.7 mmol/l (21-28) 01/28/18 12:10 VBG Total CO2 25.9 mmol.L (22-28) 01/28/18 12:10 VBG O2 Sat (Calc) 96.1 % (40-65) H 01/28/18 12:10 VBG Base Excess 0.1 mmol/L (0.0-2.0) 01/28/18 12:10 VBG Potassium 3.8 mmol/L (3.6-5.2) 01/28/18 12:10 Sodium 134.0 mmol/L (132-148) 01/28/18 12:10 Chloride 103.0 mmol/L (98-107) 01/28/18 12:10 Glucose 111 mg/dl (75-110) H 01/28/18 12:10 Lactate 1.8 mmol/L (0.7-2.1) 01/28/18 12:10 FiO2 21.0 % 01/28/18 12:10 Sodium 141 mmol/L (132-148) 01/29/18 07:30 Potassium 4.1 mmol/L (3.6-5.0) 01/29/18 07:30 Chloride 105 mmol/L (98-107) 01/29/18 07:30 Carbon Dioxide 25 mmol/L (21-33) 01/29/18 07:30 Anion Gap 16 (10-20) 01/29/18 07:30 BUN 12 mg/dL (7-21) 01/29/18 07:30 Creatinine 0.8 mg/dl (0.8-1.5) 01/29/18 07:30 Est GFR ( Amer) > 60 01/29/18 07:30 Est GFR (Non-Af Amer) > 60 01/29/18 07:30 POC Glucose (mg/dL) 88 mg/dL (65-110) 01/29/18 12:02 Random Glucose 100 mg/dL (70-110) 01/29/18 07:30 Hemoglobin A1c 6.0 % (4.2-6.5) 01/28/18 14:00 Calcium 9.2 mg/dL (8.4-10.5) 01/29/18 07:30 Magnesium 2.2 mg/dL (1.7-2.2) 01/28/18 10:35 Total Bilirubin 0.3 mg/dL (0.2-1.3) 01/29/18 07:30 AST 30 U/L (17-59) 01/29/18 07:30 ALT 26 U/L (7-56) 01/29/18 07:30 Alkaline Phosphatase 41 U/L (38-126) 01/29/18 07:30 Lactate Dehydrogenase 330 U/L (333-699) L 01/29/18 02:05 Total Creatine Kinase 216 U/L (35-230) 01/29/18 02:05 Troponin I < 0.01 ng/mL 01/29/18 02:05 NT-Pro-B Natriuret Pep 58.2 pg/mL (0-450) 01/28/18 10:35 Total Protein 7.1 g/dL (5.8-8.3) 01/29/18 07:30 Albumin 4.1 g/dL (3.0-4.8) 01/29/18 07:30 Globulin 3.0 gm/dL 01/29/18 07:30 Albumin/Globulin Ratio 1.4 (1.1-1.8) 01/29/18 07:30 Triglycerides 145 mg/dL (35-160) 01/28/18 14:00 Cholesterol 188 mg/dL (130-200) 01/28/18 14:00 LDL Cholesterol Direct 110 mg/dL (0-129) 01/28/18 14:00 HDL Cholesterol 47 mg/dL (29-60) 01/28/18 14:00 Free T4 1.17 ng/dL (0.78-2.19) 01/29/18 07:18 TSH 3rd Generation 0.58 mIU/mL (0.46-4.68) 01/29/18 07:18 Venous Blood Potassium 3.8 mmol/L (3.6-5.2) 01/28/18 12:10 Urine Color Yellow (YELLOW) 01/28/18 11:25 Urine Appearance Clear (CLEAR) 01/28/18 11:25 Urine pH 6.0 (4.7-8.0) 01/28/18 11:25 Ur Specific [place] 1.025 (1.005-1.035) 01/28/18 11:25 Urine Protein Trace mg/dL (<30 mg/dL) H 01/28/18 11:25 Urine Glucose (UA) Negative mg/dL (NEGATIVE) 01/28/18 11:25 Urine Ketones Negative mg/dL (NEGATIVE) 01/28/18 11:25 Urine Blood Negative (NEGATIVE) 01/28/18 11:25 Urine Nitrate Negative (NEGATIVE) 01/28/18 11:25 Urine Bilirubin Negative (NEGATIVE) 01/28/18 11:25 Urine Urobilinogen 0.2 E.U./dL (<1 E.U./dL) 01/28/18 11:25 Ur Leukocyte Esterase Negative Khalida/uL (NEGATIVE) 01/28/18 11:25 Urine RBC 0 - 2 /hpf (0-2) 01/28/18 11:25 Urine WBC 0 - 2 /hpf (0-6) 01/28/18 11:25 Ur Epithelial Cells None /hpf (0-5) 01/28/18 11:25 Urine Bacteria Few (NEG) 01/28/18 11:25 - Hospital Course Hospital Course: PGY-[address] Negrete Mr. Juanito Rocha, 62M, former smoker (quit 1 year ago), with PMHx of HTN, non-IDDM , COPD, c/o chest pain and dizziness x 1 day. Dizziness was associated with chest discomfort, N/V, diaphoresis, and generalized weakness. EKG: NSR 81. Qtc 462ms. No arrhythmogenic interval. No ST-segment elevations or depressions, no T -wave inversions, normal intervals. CT head: no acute intracranial abnormality. He took meclizine in the ED and felt better but room-spinning sensation returns after the [place]-hallpike manuever with positive findings of horizontal nystagmus. He was admitted to telemetry. His chest discomfort and dizziness resolved today. Trops negative x 3. No significant EKG changes next day. Carotid U/S showed mild artherosclerosis. Echocardiogram pending read. Physical therapy deemed pt was not a PT candidate. He insists of AMA. Benefit and risk of AMA explained. Refer to AMA form. Daughter and patient understood the consequences of AMA. Pt was advised to follow up with Dr Giron for outpatient stress test. Pt signed AMA, IV removed, left with daughter. Discharge Exam - Head Exam Head Exam: ATRAUMATIC, NORMAL INSPECTION, NORMOCEPHALIC Discharge Plan - Follow Up Plan Condition: FAIR Disposition: AGAINST MEDICAL ADVICE Additional Instructions: 1. Follow up with Primary care doctor, Dr. Perez, to follow up on this hospital visit. Re-check thyroid function. TSH was low at this admission. Recheck CBC because pt may have microcytic red blood cell that may need outpatient work up. 2. Follow up with Dr. Giron, sole assessor, in 1-2 weeks after discharge for outpatient stress test. Referrals: Ana Melgar MD [Primary Care Provider] - Tom Giron MD [Staff Provider] - <Obed Negrete - Last Filed: 01/29/18 19:20> Provider - Provider Date of Admission: 01/28/18 12:45 Attending physician: Obed Negrete MD Primary care physician: Ana Melgar MD Time Spent in preparation of Discharge (in minutes): 20 Hospital Course - Lab Results Lab Results: Most Recent Lab Values WBC 8.3 10^3/ul (4.5-11.0) 01/29/18 07:30 RBC 6.06 10^6/uL (3.5-6.1) 01/29/18 07:30 Hgb 16.6 g/dL (14.0-18.0) 01/29/18 07:30 Hct 48.4 % (42.0-52.0) 01/29/18 07:30 MCV 79.9 fl (80.0-105.0) L 01/29/18 07:30 MCH 27.4 pg (25.0-35.0) 01/29/18 07:30 MCHC 34.3 g/dl (31.0-37.0) 01/29/18 07:30 RDW 15.2 % (11.5-14.5) H 01/29/18 07:30 Plt Count 263 10^3/uL (120.0-450.0) 01/29/18 07:30 MPV 9.6 fl (7.0-11.0) 01/29/18 07:30 Gran % 56.6 % (50.0-68.0) 01/29/18 07:30 Lymph % (Auto) 35.0 % (22.0-35.0) 01/29/18 07:30 Pierce % (Auto) 7.1 % (1.0-6.0) H 01/29/18 07:30 Eos % (Auto) 1.1 % (1.5-5.0) L 01/29/18 07:30 Baso % (Auto) 0.2 % (0.0-3.0) 01/29/18 07:30 Gran # 4.67 (1.4-6.5) 01/29/18 07:30 Lymph # (Auto) 2.9 (1.2-3.4) 01/29/18 07:30 Pierce # (Auto) 0.6 (0.1-0.6) 01/29/18 07:30 Eos # (Auto) 0.1 (0.0-0.7) 01/29/18 07:30 Baso # (Auto) 0.02 K/mm3 (0.0-2.0) 01/29/18 07:30 PT 11.7 SECONDS (9.4-12.5) 01/28/18 10:35 INR 1.02 (0.93-1.08) 01/28/18 10:35 APTT 31.0 Seconds (25.1-36.5) 01/28/18 10:35 pO2 69 mm/Hg (30-55) H 01/28/18 12:10 VBG pH 7.41 (7.32-7.43) 01/28/18 12:10 VBG pCO2 39.0 (40-60) L 01/28/18 12:10 VBG HCO3 24.7 mmol/l (21-28) 01/28/18 12:10 VBG Total CO2 25.9 mmol.L (22-28) 01/28/18 12:10 VBG O2 Sat (Calc) 96.1 % (40-65) H 01/28/18 12:10 VBG Base Excess 0.1 mmol/L (0.0-2.0) 01/28/18 12:10 VBG Potassium 3.8 mmol/L (3.6-5.2) 01/28/18 12:10 Sodium 134.0 mmol/L (132-148) 01/28/18 12:10 Chloride 103.0 mmol/L (98-107) 01/28/18 12:10 Glucose 111 mg/dl (75-110) H 01/28/18 12:10 Lactate 1.8 mmol/L (0.7-2.1) 01/28/18 12:10 FiO2 21.0 % 01/28/18 12:10 Sodium 141 mmol/L (132-148) 01/29/18 07:30 Potassium 4.1 mmol/L (3.6-5.0) 01/29/18 07:30 Chloride 105 mmol/L (98-107) 01/29/18 07:30 Carbon Dioxide 25 mmol/L (21-33) 01/29/18 07:30 Anion Gap 16 (10-20) 01/29/18 07:30 BUN 12 mg/dL (7-21) 01/29/18 07:30 Creatinine 0.8 mg/dl (0.8-1.5) 01/29/18 07:30 Est GFR ( Amer) > 60 01/29/18 07:30 Est GFR (Non-Af Amer) > 60 01/29/18 07:30 POC Glucose (mg/dL) 88 mg/dL (65-110) 01/29/18 12:02 Random Glucose 100 mg/dL (70-110) 01/29/18 07:30 Hemoglobin A1c 6.0 % (4.2-6.5) 01/28/18 14:00 Calcium 9.2 mg/dL (8.4-10.5) 01/29/18 07:30 Magnesium 2.2 mg/dL (1.7-2.2) 01/28/18 10:35 Total Bilirubin 0.3 mg/dL (0.2-1.3) 01/29/18 07:30 AST 30 U/L (17-59) 01/29/18 07:30 ALT 26 U/L (7-56) 01/29/18 07:30 Alkaline Phosphatase 41 U/L (38-126) 01/29/18 07:30 Lactate Dehydrogenase 330 U/L (333-699) L 01/29/18 02:05 Total Creatine Kinase 216 U/L (35-230) 01/29/18 02:05 Troponin I < 0.01 ng/mL 01/29/18 02:05 NT-Pro-B Natriuret Pep 58.2 pg/mL (0-450) 01/28/18 10:35 Total Protein 7.1 g/dL (5.8-8.3) 01/29/18 07:30 Albumin 4.1 g/dL (3.0-4.8) 01/29/18 07:30 Globulin 3.0 gm/dL 01/29/18 07:30 Albumin/Globulin Ratio 1.4 (1.1-1.8) 01/29/18 07:30 Triglycerides 145 mg/dL (35-160) 01/28/18 14:00 Cholesterol 188 mg/dL (130-200) 01/28/18 14:00 LDL Cholesterol Direct 110 mg/dL (0-129) 01/28/18 14:00 HDL Cholesterol 47 mg/dL (29-60) 01/28/18 14:00 Free T4 1.17 ng/dL (0.78-2.19) 01/29/18 07:18 TSH 3rd Generation 0.58 mIU/mL (0.46-4.68) 01/29/18 07:18 Venous Blood Potassium 3.8 mmol/L (3.6-5.2) 01/28/18 12:10 Urine Color Yellow (YELLOW) 01/28/18 11:25 Urine Appearance Clear (CLEAR) 01/28/18 11:25 Urine pH 6.0 (4.7-8.0) 01/28/18 11:25 Ur Specific [place] 1.025 (1.005-1.035) 01/28/18 11:25 Urine Protein Trace mg/dL (<30 mg/dL) H 01/28/18 11:25 Urine Glucose (UA) Negative mg/dL (NEGATIVE) 01/28/18 11:25 Urine Ketones Negative mg/dL (NEGATIVE) 01/28/18 11:25 Urine Blood Negative (NEGATIVE) 01/28/18 11:25 Urine Nitrate Negative (NEGATIVE) 01/28/18 11:25 Urine Bilirubin Negative (NEGATIVE) 01/28/18 11:25 Urine Urobilinogen 0.2 E.U./dL (<1 E.U./dL) 01/28/18 11:25 Ur Leukocyte Esterase Negative [place]/uL (NEGATIVE) 01/28/18 11:25 Urine RBC 0 - 2 /hpf (0-2) 01/28/18 11:25 Urine WBC 0 - 2 /hpf (0-6) 01/28/18 11:25 Ur Epithelial Cells None /hpf (0-5) 01/28/18 11:25 Urine Bacteria Few (NEG) 01/28/18 11:25 Discharge Exam - Head Exam Head Exam: NORMAL INSPECTION - Eye Exam Eye Exam: EOMI - Neck Exam Neck exam: Full Rom - Respiratory Exam Respiratory Exam: Clear to PA & Lateral. absent: Rhonchi, Wheezes - Cardiovascular Exam Cardiovascular Exam: REGULAR RHYTHM, +S1, +S2 - GI/Abdominal Exam GI & Abdominal Exam: Normal Bowel Sounds, Soft. absent: Organomegaly, Tenderness - Extremities Exam Extremities exam: normal inspection - Neurological Exam Neurological exam: Alert, Oriented x3 - Psychiatric Exam Psychiatric exam: Normal Affect, Normal Mood Discharge Plan - Follow Up Plan Patient education suggested?: Yes Attending/Attestation - Attestation I have personally seen and examined this patient.: Yes I have fully participated in the care of the patient.: Yes I have reviewed all pertinent clinical information, including history, physical exam and plan: Yes Notes (Text): 01/29/18 19:16 62 year old male, former smoker, with past medical history of hypertension, diabetes, and COPD who presented with complaint of chest pain and dizziness. Serial cardiac enzymes were negative and ACS was ruled out. He was seen by cardiology who recommended outpatient stress test and echocardiogram. CT head was negative for acute findings. Carotid dopplers were done which was reviewed as above. He was pending neurology evaluation. Today he states his symptoms have resolved. He does not want to wait for neurology evaluation and signed out AMA. Daughter at bedside as well. He was counselled on smoking cessation. Follow up with pmd and cardiology. Obed Negrete MD Hospitalist.
== END 2018-01-29 18:28 | disposition left against medical advice (07) ==
LOC: ED 10:22 → INTOOBSV 12:45 → ERH 12:45 → 2RNO 14:43
PROVIDERS: ADMIT Internal Medicine; ATTEND Internal Medicine
DX: R42 Dizziness and giddiness (principal); E11.9 Type 2 diabetes mellitus without complications; H55.09 Other forms of nystagmus; I10 Essential (primary) hypertension; J44.9 Chronic obstructive pulmonary disease, unspecified; Z79.82 Long term (current) use of aspirin; Z82.49 Family history of ischemic heart disease and other diseases of the circulatory system; Z87.891 Personal history of nicotine dependence
CPT/HCPCS: 36415; 70450; 71045; 80053; 80061; 81001; 82550; 82803; 82948; 83036; 83615; 83735; 83880; 84439; 84443; 84484; 85025; 85610; 85730; 87086; 93005; 93306; 93880; 94640; 94760; 96361; 96374; 97116; 97161; 99285; G0378; G8978; G8979; G8980; J1644; J2405; J7040